=== PATIENT | female | born 1960 | race African-American/Black ===

== ENCOUNTER 2023-10-01 08:57 | Day surgery (SDC) | payer OTHER ==
[2023-09-27 11:55] VITALS: BMI 37.1
[2023-10-01] MEDS ORDERED: PROPOFOL 60 ML ONE (09:10)
[2023-10-01 10:59] VITALS: RESP 16; TEMP 97.9
[2023-10-01 11:04] VITALS: BP 146/73; PULSE 74
== END 2023-10-01 11:45 | disposition home or self-care (01) ==
LOC: FASU-ENDO 08:57
PROVIDERS: ATTEND Internal Medicine Gastroenterology
PROC: 0DJD8ZZ Inspection of Lower Intestinal Tract, Via Natural or Artificial Opening Endoscopic (ICD-10-PCS; principal; 2023-10-01 10:00)
DX: Z12.11 Encounter for screening for malignant neoplasm of colon (principal)

== ENCOUNTER 2023-10-29 07:38 | Day surgery (SDC) | payer OTHER ==
[2023-10-25 16:04] VITALS: BMI 36.6
[2023-10-29 07:54] VITALS: RESP 16
[2023-10-29 10:04] VITALS: TEMP 97.3
[2023-10-29 10:06] VITALS: BP 162/92; PULSE 78
== END 2023-10-29 10:00 | disposition home or self-care (01) ==
LOC: FASU-ENDO 07:38
PROVIDERS: ATTEND Internal Medicine Gastroenterology
PROC: 0DB88ZX Excision of Small Intestine, Via Natural or Artificial Opening Endoscopic, Diagnostic (ICD-10-PCS; 2023-10-29)
PROC: 0DB68ZX Excision of Stomach, Via Natural or Artificial Opening Endoscopic, Diagnostic (ICD-10-PCS; 2023-10-29)
PROC: 0DB48ZX Excision of Esophagogastric Junction, Via Natural or Artificial Opening Endoscopic, Diagnostic (ICD-10-PCS; principal; 2023-10-29 09:09)
DX: K29.50 Unspecified chronic gastritis without bleeding (principal); K20.90 Esophagitis, unspecified without bleeding; Z98.84 Bariatric surgery status; Z98.0 Intestinal bypass and anastomosis status
CPT/HCPCS: 88305-TC; 88342-TC